=== PATIENT | male | born 1965 | race Caucasian/White ===

== ENCOUNTER 2018-04-16 01:19 | Observation (INO) ==
[2018-04-16] MEDS ORDERED: TAMSULOSIN 0.4 MG CAPSULE PO SCH ×2 (03:29→09:00)
[2018-04-16] MEDS ORDERED: HYDROmorphone 2 MG/1 ML VIAL IV ONE (03:29)
[2018-04-16] MEDS ORDERED: ACETAMINOPHEN 325 MG TABLET PO PRN (03:30)
[2018-04-16] MEDS ORDERED: HYDROmorphone 2 MG/1 ML VIAL IV PRN (03:30)
[2018-04-16] MEDS ORDERED: TAMSULOSIN 0.4 MG CAPSULE PO ONE (03:35)
[2018-04-16] MEDS: ONDANSETRON 4 MG/2 ML VIAL IV PRN ×3 (04:10→11:30)
[2018-04-16] MEDS: SODIUM CHLORIDE 0.9% 1,000 ML IV SCH ×4 (04:10→19:15)
[2018-04-16 05:30] LABS: Apearance,Urine CLOUDY (Clear); Blood, Urine Large mg/dL (Negative); Calcium Oxalate Crystals,Urine Moderate /HPF (Few); Glucose,Urine (UA) Negative (Negative); Ketones,Urine 5 mg/dL (Negative); Mucus,Urine Occasional /LPF (Occasional); Nitrite,Urine Negative (Negative); Protein,Urine 100 MG/DL; RBC,Urine 1622 /HPF (0-4); Urine Color Amber (Yellow)
[2018-04-16 05:42] LABS: Bilirubin,Urine Small mg/dL (Negative)
[2018-04-16 06:00] LABS: Basophils # 0.1 10*3/uL (0.0-0.2); Basophils % 0.4 % (0.0-0.8); Eosinophils # 0.1 10*3/uL (0.0-0.87); Eosinophils % 0.8 % (0.00-10.9); Hematocrit 46.5 VOL% (42.0-52.0); Immature Granulocytes % 0.5 %; Immature Granulocytes Absolute 0.06 #; Lymphocytes # 0.8 10*3/uL (1.4-4.0); Lymphocytes % 7.3 % (21.2-54.2); Mean Corpuscular HGB Conc 32.3 GM/DL (32-36); Mean Corpuscular Hemoglobin 31 PG (27-34); Mean Corpuscular Volume 95.7 FL (87-102); Mean Platelet Volume 8.8 FL (9.6-12.0); Monocytes % 9.2 % (1.7-12.7); Neutrophils # 9.2 10*3/uL (1.4-7.4); Neutrophils % 81.8 % (38.7-73.9); Platelet Count 234 T/CUMM (130-400); Red Blood Count 4.86 MC/CUMM (3.8-5.5); Red Cell Distribution Width 12.5 % (9.3-17.3); White Blood Count 11.3 T/CUMM (4-12)
[2018-04-16 06:17] LABS: Calcium 7.9 MG/DL (8.5-10.1); Osmolality,Calculated 287.3 MOS/KG (273-304); Potassium 4.1 MMOL/L (3.5-5.1)
[2018-04-16] MEDS: MORPHINE 4 MG/1 ML VIAL IV PRN ×2 (07:53→11:30)
[2018-04-16] MEDS: NON-FORMULARY MEDICATION (Dextroamphetamine/Amphetamine [Adderall 20 Mg Tablet] 20 MG) PO SCH ×3 (09:43→21:09)
[2018-04-16] MEDS: HYDROmorphone 2 MG/1 ML VIAL IV PRN ×2 (15:06→21:10)
[2018-04-16] MEDS ORDERED: ALUMINUM/MAGNES/SIMETH MAX STR 30 ML UDCUP PO PRN (17:35)
[2018-04-16] MEDS: TAMSULOSIN 0.4 MG CAPSULE PO SCH (21:11)
[2018-04-17 04:25] VITALS: BP 116/69
[2018-04-17] MEDS: SODIUM CHLORIDE 0.9% 1,000 ML IV SCH (06:27)
[2018-04-17] MEDS: TAMSULOSIN 0.4 MG CAPSULE PO SCH (09:36)
[2018-04-17] MEDS: NON-FORMULARY MEDICATION (Dextroamphetamine/Amphetamine [Adderall 20 Mg Tablet] 20 MG) PO SCH (09:40)
== END 2018-04-17 12:05 | disposition home or self-care (01) ==
LOC: SUATTDRO 02:14 → N.5E 02:14 → INTOOBSV 02:14
PROVIDERS: ADMIT Internal Medicine; ATTEND Internal Medicine